=== PATIENT | male | born 1955 | race Caucasian/White ===

== ENCOUNTER 2019-01-24 22:11 | Emergency (ER) | payer OTHER ==
[2019-01-24 22:18] VITALS: BP 000/00; PULSE 0; TEMP 0; BMI 17.3
--- NOTE | 2019-01-24 22:54 | PDOC ---
History of Present Illness - General Chief Complaint: Cardiac Arrest Stated Complaint: CARDIAC ARREST Past History - Past Medical History Allergies/Adverse Reactions: Allergies Allergy/AdvReac Type Severity Reaction Status Date / Time No Known Allergies Allergy Verified 01/24/19 22:18 - Psycho Social/Smoking Cessation Hx Smoking History: Unknown if ever smoked *Physical Exam - Vital Signs Last Vital Signs Temp Pulse Resp BP Pulse Ox 0 F L 0 L 0 L 000/00 L 0 L 01/24/19 22:11 01/24/19 22:11 01/24/19 22:11 01/24/19 22:11 01/24/19 22:11 - Physical Exam Comments: GENERAL: Presented in cardiac arrest HEAD: No signs of trauma EYES: pupils fixed/dilated NECK: Tracheostomy in place LUNGS: equal breath sounds b/l w/ bagging HEART: initial minimal ventricular movement on US; No palpable pulse ABDOMEN: Soft, protuberant EXTREMITIES: No edema or wounds ED Treatment Course - LABORATORY CBC & Chemistry Diagram: 01/24/19 22:30 01/24/19 22:30 Medical Decision Making - Medical Decision Making The pt is a 63M w/ a history of HTN, cancer, HLD, s/p tracheostomy who presented from [facility] via EMS who presented in cardiac arrest Pt on DEANNA on arrival Placed on monitor IV placed Labs sent Epi x2, Bicarb, Ca BGM 195 Defib x2 TOD 2235 [place] office called, will not be an [place] case Family notified -José Miguel [place], son, -Traci, daughter, Family wishes for autopsy PMD notified, Dr. Ponce analytics consultant for Dr. Crawford 01/24/19 22:47 Labs notable for leukocytosis to 23.2 Anemia to 8.4 No significant lyte derangements 01/25/19 06:49 Discharge - Discharge Information Problems reviewed: Yes Clinical Impression/Diagnosis: Cardiac arrest Condition: Critical Disposition: - Admission No - Follow up/Referral Referrals: Candelario Crawford MD [Primary Care Provider] - - Patient Discharge Instructions - Post Discharge Activity
--- NOTE | 2019-01-24 22:55 | PDOC ---
Attending Attestation - Resident Resident Name: Declan Garza - ED Attending Attestation I have performed the following: I have examined & evaluated the patient, The case was reviewed & discussed with the resident, I agree w/resident's findings & plan - HPI HPI: 01/24/19 22:53 see resident hpi - Physicial Exam PE: 01/24/19 22:53 agree with resident exam - Medical Decision Making 01/24/19 22:53 63 yo male BIBA unresponsive with CPR in progress no response to acls x 1 hour after initiation in field TOD 10:35 PM, family notifies by ED resident
[2019-01-24 23:15] LABS: BASO % 0.7 % (0-2.0); EOS % 1.2 % (0-4.5); HEMATOCRIT 28.3 % (35.4-49); HEMOGLOBIN 8.4 GM/dL (11.7-16.9); LYMPH % 40.8 % (8-40); MCH 27.5 pg (25.7-33.7); MCHC 29.8 g/dl (32.0-35.9); MEAN PLT VOLUME 9.6 fl (7.5-11.1); MONO % 5.9 % (3.8-10.2); NEUT % 51.4 % (42.8-82.8); PLATELET COUNT 312 K/MM3 (134-434); RBC 3.07 M/mm3 (4.00-5.60); RDW 17.6 % (11.9-15.9); WHITE BLOOD COUNT 23.2 K/mm3 (4.0-10.0)
[2019-01-24 23:28] LABS: INR 1.2 (0.83-1.09); PROTHROMBIN TIME (PATIENT) 14.2 SEC (9.7-13.0)
[2019-01-24 23:30] LABS: ACTIVATED PTT 27.1 SECONDS (25.2-36.5)
[2019-01-24 23:50] LABS: ALBUMIN 2.6 g/dl (3.4-5.0); BILIRUBIN,TOTAL 0.3 mg/dL (0.2-1); BLOOD UREA NITROGEN 8.3 mg/dL (7-18); CALCIUM 10.2 mg/dL (8.5-10.1); CREATININE 0.8 mg/dL (0.55-1.3); MAGNESIUM 2.1 mg/dL (1.8-2.4); PHOSPHOROUS 6.3 mg/dL (2.5-4.9); TOT PROT 6.1 g/dl (6.4-8.2)
[2019-01-24 23:59] LABS: ANISOCYTOSIS 1+; MACROCYTOSIS 1+; OVALOCYTE 1+; PLATELET ESTIMATE NORMAL
== END 2019-01-25 | disposition expired ==
LOC: JER 22:11
PROC: 5A02216 Assistance with Cardiac Output using Other Pump, Continuous (ICD-10-PCS; principal; 2019-01-24)
DX: I46.9 Cardiac arrest, cause unspecified (principal); I10 Essential (primary) hypertension; E78.5 Hyperlipidemia, unspecified; C80.1 Malignant (primary) neoplasm, unspecified; Z93.0 Tracheostomy status
CPT/HCPCS: 36415; 80053; 83735; 84100; 85025; 85610; 85730; 86850; 86900; 86901; 92950; 99285-25